=== PATIENT | female | born 1975 | race Caucasian/White ===

== ENCOUNTER 2020-02-09 10:32 | Observation (INO) ==
[2020-02-09] MEDS ORDERED: MoRPHine SULFATE 4 MG/ML 1 ML CARP\\VIAL IV STA ×2 (11:15→12:24)
[2020-02-09] MEDS ORDERED: PROMETHAZINE 12.5 MG/50.5 ML BAG IV STA (11:15)
--- NOTE | 2020-02-09 11:42 | XRay Report ---
XR chest 1V portable CLINICAL HISTORY: fall, pain in chest/fluid retention COMPARISON STUDY: Chest radiograph October 17, 2019. FINDINGS: Lung volumes are normal. Lungs are clear. There is no pneumothorax or pleural effusion. Car diac size is normal. Mediastinal contours are normal. There is no evidence for pulmonary edema. A mon itoring device projects over the left hemithorax. IMPRESSION: No acute cardiopulmonary findings. ACT 112: Negative or not required by law. Electronically signed by: Ramiro Bey M.D. 02/09/2020 11:40 AM
[2020-02-09 11:47] LABS: Basophils # (auto) 0.02 K/uL (0-0.2); Basophils % (auto) 0.3 %; Eosinophils # (auto) 0.21 K/uL (0-0.5); Hematocrit (blood only) 41.2 % (37-47); Hemoglobin 13.6 g/dL (12.0-16.0); Immature Granulocytes # (auto) 0.01 K/uL (0.00-0.02); Immature Granulocytes % (auto) 0.1 %; Lymphocytes # (auto) 2.54 K/uL (1.2-3.4); Lymphocytes % (auto) 35.9 %; Mean Corpuscular Hemoglobin 30.8 pg (25-34); Mean Corpuscular Volume 93.2 fL (80-100); Mean Platelet Volume 9.4 fL (7.4-10.4); Monocytes # (auto) 0.63 K/uL (0.11-0.59); Monocytes % (auto) 8.9 %; Neutrophils # (auto) 3.66 K/uL (1.4-6.5); Neutrophils % (auto) 51.8 %; Platelet Count 300 K/uL (130-400); RDW Coefficient of Variation 13.2 % (11.5-14.5); RDW Standard Deviation 44.9 fL (36.4-46.3); Red Blood Count 4.42 M/uL (4.2-5.4); White Blood Count 7.07 K/uL (4.8-10.8)
--- NOTE | 2020-02-09 11:55 | CT Scan Report ---
CT head/brain wo con CLINICAL HISTORY: 44 years-old Female with Fall, head, face, neck pain. Acute head and neck injury s tatus post fall TECHNIQUE: Multiple axial CT images of the head were obtained without contrast. A dose lowering tech nique was utilized adhering to the principles of ALARA. CT DOSE: 638.56 mGycm COMPARISON: CT cervical spine of same day, head CT 10/17/2019. FINDINGS: No acute intracranial hemorrhage, midline shift, intracranial mass, hydrocephalus, territorial ischem ia or abnormal extra-axial collection. Low-lying cerebellar tonsils. The calvarium is intact. Mild mucosal thickening of the left maxillary sinus. Mastoid air cells are clear. Soft tissues and orbits are unremarkable. IMPRESSION: No acute intracranial abnormality or calvarial fracture. ACT 112: Negative or not required by law. The above report was generated using voice recognition software. It may contain grammatical, syntax o r spelling errors. Electronically signed by: Ward Carrington M.D. 02/09/2020 11:54 AM
--- NOTE | 2020-02-09 12:05 | CT Scan Report ---
CT cervical spine wo con CT DOSE: 1030.64 mGycm CLINICAL HISTORY: 44 years-old Female with Fall, head, face, neck pain. Acute head and neck pain sta tus post fall COMPARISON: Head CT of same day. TECHNIQUE: Multiple axial CT images of the cervical spine were obtained without contrast. A dose low ering technique was utilized adhering to the principles of ALARA. FINDINGS: Straightening of the normal cervical lordosis. Mild disc space narrowing at C4-C5 and C5-C6 with mild spondylitic spurring. Mild multilevel facet arthrosis. Evaluation of the central canal and neurofora bryce is better assessed by MRI. No high-grade central canal or foraminal narrowing identified. Mild groundglass densities of the lung apices. No pneumothorax. Soft tissues are unremarkable. No pre vertebral soft tissue swelling. IMPRESSION: No acute fracture or subluxation. ACT 112: Negative or not required by law. The above report was generated using voice recognition software. It may contain grammatical, syntax o r spelling errors. Electronically signed by: Ward Carrington M.D. 02/09/2020 12:03 PM
[2020-02-09 12:06] LABS: Alanine Aminotransferase 44 U/L (12-78); Aspartate Aminotransferase 33 U/L (15-37); BUN Creatinine Ratio 20.4 (10-20); Blood Urea Nitrogen 14 mg/dl (7-18); Calcium 8.7 mg/dl (8.5-10.1); Carbon Dioxide 25 mmol/L (21-32); Chloride 104 mmol/L (98-107); Creatinine Clr Calc Pharmacy 115.2 ml/min; Est GFR (African American) 122.2; Est GFR (Non-African American) 105.4; Glucose 95 mg/dl (70-99); Potassium 3.5 mmol/L (3.5-5.1); Sodium 137 mmol/L (136-145)
--- NOTE | 2020-02-09 12:07 | CT Scan Report ---
LUMBAR SPINE CT CT DOSE: HISTORY: Fall, low back pain TECHNIQUE: Multiaxial CT images of the lumbar spine were performed and reformatted in the sagittal an d coronal plane without the use of contrast. A dose lowering technique was utilized adhering to the principles of ALARA. COMPARISON: None. FINDINGS: No fractures. No subluxation. Paraspinal soft tissues are unremarkable. Mild disc space ana maría rowing at L3-L4. Mild facet degenerative changes seen within the lower lumbar spine. IMPRESSION: No fractures within the lumbar spine. ACT 112: Negative or not required by law. Electronically signed by: Torin Carson M.D. 02/09/2020 12:05 PM
[2020-02-09 12:11] LABS: Albumin Globulin Ratio 1.1 (0.9-2); Alkaline Phosphatase 70 U/L (45-117); Bilirubin,Total 0.4 mg/dl (0.2-1); Globulin 3.7 gm/dl (2.5-4.0); Total Protein 7.7 gm/dl (6.4-8.2); Troponin I < 0.015 ng/ml (0-0.045)
--- NOTE | 2020-02-09 12:17 | Emergency Department Note ---
History of Present Illness General Chief complaint: Head Injury, Minor Stated complaint: HEAD HIT OFF DOOR,LOST CONCIOUSNESS,DOC REF Time Seen by Provider: 02/09/20 11:01 History of Present Illness Maximum Pain Intensity: 10 This is a 44-year-old female with a past medical history significant for that of Guillain Larson and cardiomyopathy that presents to the emergency department via private vehicle with concerns of a head injury and back pain. She was referred by the PCP office. Patient states that earlier today she was at home getting ready for a PCP office visit regarding constant diarrhea and states that as she was rushing she was running and accidentally ran into the sliding door of her home. She struck her face against this and struck it with such force that she flew backwards. She notes pain now in the face, head, neck and low back. She also notes some discomfort in the right anterior chest. Pain is a 10/10. It is worse with movement and only mildly better with rest. Patient does believe that there was positive loss of consciousness. No bowel or bladder incontinence, no numbness or tingling in the genital region. Home Medications Home Medications Medication Instructions Recorded Confirmed Type clonazepam [Klonopin] 0.5 mg PO BID 02/11/19 02/09/20 History gabapentin 300 mg PO BID 10/17/19 02/09/20 History hydroxyzine HCl 25 mg PO HS 02/09/20 02/09/20 History metoprolol succinate 25 mg PO DAILY 02/09/20 02/09/20 History omeprazole 20 mg PO DAILY 02/09/20 02/09/20 History oxycodone-acetaminophen 1 tab PO BID 02/09/20 02/09/20 History Allergies Allergy/AdvReac Type Severity Reaction Status Date / Time lamotrigine Allergy rash Verified 02/09/20 12:06 meloxicam [From Mobic] AdvReac Chest Pain Verified 02/09/20 12:06 Past Med/Surg History Medical History Cardiomyopathy EF 50%; follows with Triston Chapman; 2nd to prior alcohol use? SUKHJINDER (generalized anxiety disorder) GERD (gastroesophageal reflux disease) Guillain Larson syndrome dx 09/2019 - [facility] History of endometriosis History of pancreatitis PTSD (post-traumatic stress disorder) Von Willebrand disease Surgical History H/O prior ablation treatment lumbar spinal nerves - [facility] - 12/2019 History of hysterectomy S/P cholecystectomy Family History Grandmother (Maternal) , age 56 Colorectal cancer Father Alzheimer disease Social History Preferred Language: Bulgarian Communication Ability: Effective Plumber Required: No Beliefs That Will Affect Care: None marital status: Current Living Situation: Spouse current occupational status: previously employed Other Information That Helps Us Care for You: No other: 2 children, college-age Feels Safe at Home: Yes Safety Concerns: Feels Safe At This Time Smoking Status: Never smoker Hx Alcohol Use: Yes Alcohol type: beer Alcohol Intake Frequency: Weekly Alcohol Intake Frequency Comment: drank heavily in her 20s Hx Substance Use: No 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 Review of Systems A total of 10 systems reviewed and were otherwise negative Physical Exam Vital Signs Vital Signs - 24 hr 02/09/20 10:48 02/09/20 13:18 02/09/20 13:19 Temperature 36.8 C Temperature Source Oral Pulse Rate 90 Pulse Rate [Right Finger] 80 78 Pulse Rhythm [Right Finger] Pulse Strength [Right Finger] Respiratory Rate 16 14 18 Respiratory Effort / Characteristics Respiratory Depth Blood Pressure 138/88 Blood Pressure [Left Arm] 116/79 116/79 Blood Pressure Mean 104 Blood Pressure Mean [Left Arm] 91 91 Blood Pressure Position [Left Arm] Pulse Oximetry 98 97 96 Oxygen Delivery Method Room Air Room Air Room Air Sepsis Recent Fever Within 48 Hours No Sepsis New/Unexplained Change in Mental Status No Sepsis Action Taken by Nursing No Action Required 02/09/20 15:00 02/09/20 16:10 Temperature Temperature Source Pulse Rate Pulse Rate [Right Finger] 87 83 Pulse Rhythm [Right Finger] Regular Regular Pulse Strength [Right Finger] Normal Normal Respiratory Rate 20 18 Respiratory Effort / Characteristics Non-Labored Spontaneous Non-Labored Spontaneous Respiratory Depth Normal Normal Blood Pressure Blood Pressure [Left Arm] 115/62 Blood Pressure Mean Blood Pressure Mean [Left Arm] 79 Blood Pressure Position [Left Arm] Lying Pulse Oximetry 95 97 Oxygen Delivery Method Room Air Room Air Sepsis Recent Fever Within 48 Hours Sepsis New/Unexplained Change in Mental Status Sepsis Action Taken by Nursing VITAL SIGNS - Vital signs and nursing notes were reviewed. Stable and afebrile. GENERAL -44-year-old female appearing her stated age who is in no acute distress. Communicates well with provider and answers questions appropriately. SKIN - Without rashes. Contusion noted overlying the nose with a small skin defect but no repairable laceration. No other bruising or deformity noted on examination. HEAD - NC/AT. EYES - PERRL with EOMI bilaterally. Sclera anicteric. EARS - No deformities of external structures noted on gross examination bilaterally. NOSE - Midline and without cyanosis. No epistaxis or purulent drainage noted. MOUTH/OROPHARYNX - Without perioral cyanosis. Buccal mucosa pink and moist and without leukoplakia. Tongue midline with equal elevation of palate bilaterally. No tonsillar hypertrophy, erythema, or exudates noted. Good dentition noted. NECK - Neck with FROM. No nuchal rigidity. LUNGS - Chest wall symmetric without accessory muscle use, intercostals retractions, or central cyanosis. Normal vesicular breath sounds CTA B/L. No wheezes, rales, or rhonchi appreciated. CARDIAC - RRR with S1/S2. No murmur, rubs, or gallops appreciated. ABDOMEN - Abdominal contour normal without pulsations or visible masses. BS normoactive all four quadrants. No tenderness, palpable masses, hepatosplenomegaly, or ascites noted. EXTREMITIES - No clubbing or peripheral cyanosis. No pretibial edema present.+5/5 strength noted in UE/LE bilaterally. No deficits in the lower ex tremities. NEUROLOGIC - Cranial nerves II through XII grossly intact. PSYCH - A&Ox3 and cooperates fully with examiner. Pt is very pleasant and interacts well with examiner. Course Administered Medications Discontinued Medications Acetaminophen (Tylenol) 650 mg PO NOW STA Stop: 02/09/20 14:03 Last Admin: 02/09/20 14:40 Dose: 650 mg Documented by: [id number] Promethazine HCl (Phenergan) 12.5 mg in 50.5 mls @ 202 mls/hr IV NOW STA Stop: 02/09/20 11:29 Last Infusion: 02/09/20 12:18 Dose: 0 mls/hr Documented by: [id number] Admin: 02/09/20 11:32 Dose: 202 mls/hr Documented by: [id number] Morphine Sulfate (Morphine Sulfate) 4 mg IV NOW STA Stop: 02/09/20 11:16 Last Admin: 02/09/20 11:35 Dose: 4 mg Documented by: [id number] Morphine Sulfate (Morphine Sulfate) 4 mg IV NOW STA Stop: 02/09/20 12:25 Last Admin: 02/09/20 13:19 Dose: 4 mg Documented by: [id number] Morphine Sulfate (Morphine Sulfate) 2 mg IV NOW STA Stop: 02/09/20 16:23 Last Admin: 02/09/20 16:48 Dose: 2 mg Documented by: [id number] Ondansetron HCl (Zofran) 4 mg IV NOW STA Stop: 02/09/20 12:25 Last Admin: 02/09/20 13:19 Dose: 4 mg Documented by: [id number] Ondansetron HCl (Zofran) 4 mg IV NOW STA Stop: 02/09/20 16:28 Last Admin: 02/09/20 16:49 Dose: 4 mg Documented by: [id number] Medical Decision Making Laboratory Data Result diagrams: 02/09/20 11:22 02/09/20 11:22 Lab Results 02/09/20 02/09/20 02/09/20 Range/Units 11:22 11:22 11:22 WBC 7.07 (4.8-10.8) K/uL RBC 4.42 (4.2-5.4) M/uL Hgb 13.6 (12.0-16.0) g/dL Hct 41.2 (37-47) % MCV 93.2 (80-100) fL MCH 30.8 (25-34) pg MCHC 33.0 (32-36) g/dL RDW Std Deviation 44.9 (36.4-46.3) fL RDW Coeff of Claudio 13.2 (11.5-14.5) % Plt Count 300 (130-400) K/uL MPV 9.4 (7.4-10.4) fL Immature Gran % (Auto) 0.1 % Neut % (Auto) 51.8 % Lymph % (Auto) 35.9 % Meigs % (Auto) 8.9 % Eos % (Auto) 3.0 % Baso % (Auto) 0.3 % Immature Gran # (Auto) 0.01 (0.00-0.02) K/uL Neut # (Auto) 3.66 (1.4-6.5) K/uL Lymph # (Auto) 2.54 (1.2-3.4) K/uL Meigs # (Auto) 0.63 H (0.11-0.59) K/uL Eos # (Auto) 0.21 (0-0.5) K/uL Baso # (Auto) 0.02 (0-0.2) K/uL Sodium 137 (136-145) mmol/L Potassium 3.5 (3.5-5.1) mmol/L Chloride 104 (98-107) mmol/L Carbon Dioxide 25 (21-32) mmol/L Anion Gap 8.0 (3-11) BUN 14 (7-18) mg/dl Creatinine 0.67 (0.6-1.2) mg/dl Est Cr Clr Drug Dosing 115.2 ml/min Est GFR ( Amer) 122.2 Est GFR (Non-Af Amer) 105.4 BUN/Creatinine Ratio 20.4 H (10-20) Glucose 95 (70-99) mg/dl Calcium 8.7 (8.5-10.1) mg/dl Total Bilirubin 0.4 (0.2-1) mg/dl AST 33 (15-37) U/L ALT 44 (12-78) U/L Alkaline Phosphatase 70 (45-117) U/L Troponin I < 0.015 (0-0.045) ng/ml C-Reactive Protein 0.72 H (0-0.29) mg/dl Total Protein 7.7 (6.4-8.2) gm/dl Albumin 4.0 (3.4-5.0) gm/dl Globulin 3.7 (2.5-4.0) gm/dl Albumin/Globulin Ratio 1.1 (0.9-2) Urine Color Urine Appearance (Clear) Urine pH (4.5-7.5) Ur Specific Hamilton (1.000-1.030) Urine Protein (Negative) Urine Glucose (UA) (Negative) Urine Ketones (Negative) Urine Blood (Negative) Urine Nitrite (Negative) Urine Bilirubin (Negative) Urine Urobilinogen (Negative) Ur Leukocyte Esterase (Negative) Urine Test (Negative) 02/09/20 02/09/20 Range/Units 12:55 12:55 WBC (4.8-10.8) K/uL RBC (4.2-5.4) M/uL Hgb (12.0-16.0) g/dL Hct (37-47) % MCV (80-100) fL MCH (25-34) pg MCHC (32-36) g/dL RDW Std Deviation (36.4-46.3) fL RDW Coeff of Claudio (11.5-14.5) % Plt Count (130-400) K/uL MPV (7.4-10.4) fL Immature Gran % (Auto) % Neut % (Auto) % Lymph % (Auto) % Meigs % (Auto) % Eos % (Auto) % Baso % (Auto) % Immature Gran # (Auto) (0.00-0.02) K/uL Neut # (Auto) (1.4-6.5) K/uL Lymph # (Auto) (1.2-3.4) K/uL Meigs # (Auto) (0.11-0.59) K/uL Eos # (Auto) (0-0.5) K/uL Baso # (Auto) (0-0.2) K/uL Sodium (136-145) mmol/L Potassium (3.5-5.1) mmol/L Chloride (98-107) mmol/L Carbon Dioxide (21-32) mmol/L Anion Gap (3-11) BUN (7-18) mg/dl Creatinine (0.6-1.2) mg/dl Est Cr Clr Drug Dosing ml/min Est GFR ( Amer) Est GFR (Non-Af Amer) BUN/Creatinine Ratio (10-20) Glucose (70-99) mg/dl Calcium (8.5-10.1) mg/dl Total Bilirubin (0.2-1) mg/dl AST (15-37) U/L ALT (12-78) U/L Alkaline Phosphatase (45-117) U/L Troponin I (0-0.045) ng/ml C-Reactive Protein (0-0.29) mg/dl Total Protein (6.4-8.2) gm/dl Albumin (3.4-5.0) gm/dl Globulin (2.5-4.0) gm/dl Albumin/Globulin Ratio (0.9-2) Urine Color Yellow Urine Appearance Clear (Clear) Urine pH 5.0 (4.5-7.5) Ur Specific Hamilton 1.012 (1.000-1.030) Urine Protein Negative (Negative) Urine Glucose (UA) Negative (Negative) Urine Ketones Negative (Negative) Urine Blood Negative (Negative) Urine Nitrite Negative (Negative) Urine Bilirubin Negative (Negative) Urine Urobilinogen Negative (Negative) Ur Leukocyte Esterase Negative (Negative) Urine Test Negative (Negative) Imaging Data Radiologist's Impression: CT head/brain wo con CLINICAL HISTORY: 44 years-old Female with Fall, head, face, neck pain. Acute head and neck injury status post fall TECHNIQUE: Multiple axial CT images of the head were obtained without contrast. A dose lowering technique was utilized adhering to the principles of ALARA. CT DOSE: 638.56 mGycm COMPARISON: CT cervical spine of same day, head CT 10/17/2019. FINDINGS: No acute intracranial hemorrhage, midline shift, intracranial mass, hydrocephalus, territorial ischemia or abnormal extra-axial collection. Low- lying cerebellar tonsils. The calvarium is intact. Mild mucosal thickening of the left maxillary sinus. Mastoid air cells are clear. Soft tissues and orbits are unremarkable. IMPRESSION: No acute intracranial abnormality or calvarial fracture. ACT 112: Negative or not required by law. The above report was generated using voice recognition software. It may contain grammatical, syntax or spelling errors. Electronically signed by: Ward Carrington M.D. 02/09/2020 11:[address] DOSE: HISTORY: Fall, head, face, neck pain TECHNIQUE: Multiaxial CT images of the maxillofacial region were performed and reformatted in the coronal plane without the use of contrast. A dose lowering technique was utilized adhering to the principles of ALARA. COMPARISON: None. FINDINGS: The visualized cervical spine, skull base, pterygoid plates, nasal bones, lamina papyracea, orbital floors, mandible, and zygomatic arches are intact. No fractures. The orbits are unremarkable. Moderate mucosal thickening within the maxillary sinuses. IMPRESSION: No fractures within the maxillofacial region. ACT 112: Negative or not required by law. Electronically signed by: Torin Carson M.D. 02/09/2020 12:[address] cervical spine wo con CT DOSE: 1030.64 mGycm CLINICAL HISTORY: 44 years-old Female with Fall, head, face, neck pain. Acute head and neck pain status post fall COMPARISON: Head CT of same day. TECHNIQUE: Multiple axial CT images of the cervical spine were obtained without contrast. A dose lowering technique was utilized adhering to the principles of ALARA. FINDINGS: Straightening of the normal cervical lordosis. Mild disc space narrowing at C4- C5 and C5-C6 with mild spondylitic spurring. Mild multilevel facet arthrosis. Evaluation of the central canal and neuroforamina is better assessed by MRI. No high-grade central canal or foraminal narrowing identified. Mild groundglass densities of the lung apices. No pneumothorax. Soft tissues are unremarkable. No prevertebral soft tissue swelling. IMPRESSION: No acute fracture or subluxation. ACT 112: Negative or not required by law. The above report was generated using voice recognition software. It may contain grammatical, syntax or spelling errors. Electronically signed by: Ward Carrington M.D. 02/09/2020 12:[address] DOSE: HISTORY: Fall, low back pain TECHNIQUE: Multiaxial CT images of the lumbar spine were performed and reformatted in the sagittal and coronal plane without the use of contrast. A d ose lowering technique was utilized adhering to the principles of ALARA. COMPARISON: None. FINDINGS: No fractures. No subluxation. Paraspinal soft tissues are unremarkable. Mild disc space narrowing at L3-L4. Mild facet degenerative changes seen within the lower lumbar spine. IMPRESSION: No fractures within the lumbar spine. ACT 112: Negative or not required by law. Electronically signed by: Torin Carson M.D. 02/09/2020 12:[address] pelvis wo con HISTORY: 44 years-old Female Fall, low back pain acute pelvic pain status post fall COMPARISON: CT lumbar spine of same day TECHNIQUE: Multiple axial CT images of the pelvis were obtained without the use of IV contrast. A dose lowering technique was used consistent with the principals of ALARA. FINDINGS: The imaged intrapelvic structures demonstrate no acute abnormality. Mild urinary bladder distention. Hysterectomy. No adnexal mass lesions. No bowel obstruction or bowel wall thickening. Noninflamed appendix. No ascites or mesenteric stranding. No adenopathy. Iliac vessels appear unremarkable. Soft tissues are within normal limits. Moderate facet arthrosis of the lower lumbar spine. Partial bony fusion of the left SI joint. There is at least mild osteoarthritis of the bilateral femoral acetabular joints. No acute fracture, dislocation or avascular necrosis. IMPRESSION: No acute fracture or dislocation. ACT 112: Negative or not required by law. The above report was generated using voice recognition software. It may contain grammatical, syntax or spelling errors. Electronically signed by: Ward Carrington M.D. 02/09/2020 12:20 PM XR chest 1V portable CLINICAL HISTORY: fall, pain in chest/fluid retention COMPARISON STUDY: Chest radiograph October 17, 2019. FINDINGS: Lung volumes are normal. Lungs are clear. There is no pneumothorax or pleural effusion. Cardiac size is normal. Mediastinal contours are normal. There is no evidence for pulmonary edema. A monitoring device projects over the left hemithorax. IMPRESSION: No acute cardiopulmonary findings. ACT 112: Negative or not required by law. Electronically signed by: Ramiro Bey M.D. 02/09/2020 11:40 AM ECG Data Additional Comments: EKG was reviewed by myself and found to be Normal Sinus Rhythm at a rate of 78 beats per minute and per my interpretation reveals T wave inversion in lead III, V1, V2, V3, V4 and V5. Patient then noted return of ches t pain/worsening pain and a repeat EKG was performed and this was unchanged from previous noting a rate of 78 bpm. First EKG QTC 432 with the second being 460. And when compared to previous EKG of October 17, 2019 no significant change was found. MDM Narrative Patient was seen and evaluated as above in room B6. Review was performed of nursing notes and vital signs. I did review pertinent previous visits and patient history. After obtaining a thorough history and physical examination the above work up was performed. She presents to us today status post excellently running into a sliding door at her home now with head, face, neck and low back pain. She also notes pain in the chest. She then presented to her PCP today for evaluation of diarrhea and notes that she sustained the injury just prior to arrival to that appointment as she was referred here for further evaluation and management noting the positive loss of consciousness and other injuries. On arrival the patient does have several areas of pain/chief complaint. She notes pain in the head, face, neck, chest, low back. She also notes generalized edema and abdominal swelling as well as diarrhea that is been chronic but resolved today. I will note her vital signs are stable. She is afebrile. Her examination does not reveal any neurologic deficit. There is no leukocytosis or anemia. No emergent metabolic disturbance. Troponin negative. Urinalysis does not suggest infection. I discussed options of care with the patient and given the patient's complaint of severe discomfort in the head, face, neck and low back with associated mechanism of injury it was felt that CTs were warranted. Patient is also complaining of a dripping water sensation in the low back. The patient does not have any symptoms or sign on examination to suggest that of cauda equina syndrome. A CT scan of the head, face, C-spine, L-spine and pelvis were performed. Results as above. I reviewed these with the patient. A chest x-ray was also obtained as the patient noted chest discomfort. The CT scan of the head is negative for any acute process. The CT scan of the face does not r eveal any fracture. The CT scan of the cervical spine does not reveal any fracture. L-spine reveals no fracture. Pelvis reveals no fracture and the chest x-ray is negative. I informed the patient upon the findings and upon subsequent reevaluation several times she noted persistence of pain therefore was medicated appropriately. She was also given several antiemetics. Patient expressed concern over going home noting that she feels she may fall if she goes home. With the patient's concern she asked about potentially staying in the hospital and I discussed this with the hospitalist. She will be evaluated by that team and likely admitted for further evaluation and management. Please ref er to further documentation regarding her stay. While in the department, I personally reevaluated the patient several times and each time the patient was found to be resting comfortably. Case was discussed with the attending physician. EKG was reviewed by myself and found to be Normal Sinus Rhythm at a rate of 78 beats per minute and per my interpretation reveals T wave inversion in lead III, V1, V2, V3, V4 and V5. Patient then noted return of chest pain/worsening pain and a repeat EKG was performed and this was unchanged from previous noting a rate of 78 bpm. First EKG QTC 432 with the second being 460. And when compared to previous EKG of October 17, 2019 no significant change was found. I attest that I have personally reviewed the patient medication list. I attest that I have reviewed the patient's blood pressure and it was found to be within normal limits. GCS: 15 In the evaluation and treatment of this patient, the following differential diagnoses were considered: Concussion, Contrecoup Injury, Brain Tumor, Depression, Encephalitis, Hypothyroidism, Meningitis, CVA, TIA, Migraine, Cluster Headache, Intracranial Abnormality, Intracranial Hemorrhage, Subdural Hematoma, Subarachnoid Hemorrhage, Hydrocephalus, Fracture, dislocation, subluxation, cauda equina syndrome, AAA, diverticulitis, appendicitis, torsion, osteomyelitis, piriformis syndrome, strain, sprain, among others. Impression & Plan Fall, Concussion, Acute neck pain, Back pain, Chest pain, Dizziness Discharge Plan Visit Data Chief Complaint: Head Injury, Minor Stated Complaint: HEAD HIT OFF DOOR,LOST CONCIOUSNESS,DOC REF ED Provider: Kumar Pruitt ED Midlevel Provider: Pedro Johnson Discharge Problem: Fall, Concussion, Acute neck pain, Back pain, Chest pain, Dizziness Patient Disposition: Admitted As Inpatient Condition: Good Forms Stand Alone Forms: [facility], Virtual Emergency Department, Important Visit Information Prescriptions Prescriptions: No Action gabapentin 300 mg capsule 300 mg PO BID RF: 0 clonazepam [Klonopin] 0.5 mg Tablet 0.5 mg PO BID RF: 0 oxycodone-acetaminophen 5-325 mg tablet 1 tab PO BID RF: 0 omeprazole 20 mg capsule,delayed release(DR/EC) 20 mg PO DAILY RF: 0 hydroxyzine HCl 25 mg tablet 25 mg PO HS RF: 0 metoprolol succinate 25 mg tablet extended release 24 hr 25 mg PO DAILY RF: 0 Referrals Referrals: Sukumar Pro MD [Primary Care Provider] - Discharge Problem: Concussion Qualifiers: Encounter type: initial encounter Loss of consciousness presence/duration: with LOC of 30 min or less Qualified Code(s): S06.0X1A - Concussion with loss of consciousness of 30 minutes or less, initial encounter
--- NOTE | 2020-02-09 12:21 | CT Scan Report ---
CT pelvis wo con HISTORY: 44 years-old Female Fall, low back pain acute pelvic pain status post fall COMPARISON: CT lumbar spine of same day TECHNIQUE: Multiple axial CT images of the pelvis were obtained without the use of IV contrast. A dos e lowering technique was used consistent with the principals of ELVIS. FINDINGS: The imaged intrapelvic structures demonstrate no acute abnormality. Mild urinary bladder distention. Hysterectomy. No adnexal mass lesions. No bowel obstruction or bowel wall thickening. Noninflamed carrie endix. No ascites or mesenteric stranding. No adenopathy. Iliac vessels appear unremarkable. Soft tis sues are within normal limits. Moderate facet arthrosis of the lower lumbar spine. Partial bony fusio n of the left SI joint. There is at least mild osteoarthritis of the bilateral femoral acetabular paulo nts. No acute fracture, dislocation or avascular necrosis. IMPRESSION: No acute fracture or dislocation. ACT 112: Negative or not required by law. The above report was generated using voice recognition software. It may contain grammatical, syntax o r spelling errors. Electronically signed by: Ward Carrington M.D. 02/09/2020 12:20 PM
[2020-02-09] MEDS ORDERED: ONDANSETRON INJ 2 MG/ML 2 ML VIAL IV STA ×2 (12:24→16:27)
--- NOTE | 2020-02-09 12:25 | CT Scan Report ---
MAXILLOFACIAL CT CT DOSE: HISTORY: Fall, head, face, neck pain TECHNIQUE: Multiaxial CT images of the maxillofacial region were performed and reformatted in the cor onal plane without the use of contrast. A dose lowering technique was utilized adhering to the princ iples of ELVIS. COMPARISON: None. FINDINGS: The visualized cervical spine, skull base, pterygoid plates, nasal bones, lamina papyracea, orbital floors, mandible, and zygomatic arches are intact. No fractures. The orbits are unremarkable . Moderate mucosal thickening within the maxillary sinuses. IMPRESSION: No fractures within the maxillofacial region. ACT 112: Negative or not required by law. Electronically signed by: Torin Carson M.D. 02/09/2020 12:24 PM
[2020-02-09 13:08] LABS: Appearance Urine Clear (Clear); Bilirubin Urine Negative (Negative); Blood Urine Negative (Negative); Color Urine Yellow; Glucose Urine UA Negative (Negative); Ketones Urine Negative (Negative); Leukocyte Esterase Urine Negative (Negative); Nitrite Urine Negative (Negative); Protein Urine Negative (Negative); Specific Gravity Urine 1.012 (1.000-1.030); Urobilinogen Urine Negative (Negative)
[2020-02-09 13:25] LABS: Pregnancy Test, Urine Negative (Negative)
[2020-02-09] MEDS ORDERED: ACETAMINOPHEN 325 MG TAB PO STA (14:02)
[2020-02-09] MEDS ORDERED: MoRPHine SULFATE 2 MG/ML CARP IV STA ×2 (16:22→20:53)
--- NOTE | 2020-02-09 16:27 | History & Physical Report ---
Date of Service February 09, 2020 Assessment & Plan (1) Head injury: Patient ran into a glass door at her home due to fecal urgency. Struck the front of her face, was thrown backwards, and then fell to the ground striking her head. Had brief loss of consciousness. Fortunately her head CT and cervical spine CT were both negative. She does have history of von Willebrand's disease and typically gets DDAVP prior to procedures but there is no evidence of any bleeding on any scan. Treat headache, back pain, etc. Uses percocet at home; will allow q6h prn dosing. (2) Concussion: with LOC. CT head negative. Treat concussive symptoms. Dim the lights; no loud TV, radio, phone usage. Limit reading. Rest. (3) Diarrhea: Present 3-4 weeks. Could be reason for her fevers. Has seen [facility] in [place]. They sent stool studies - most are pending. By report c. diff was negative however. Etiology uncertain. [facility] sent TTG as screen for celiac. Still pending. CT abd/pelvis done at [facility] in the last 1-2 weeks was normal by report (I spoke with Dr Johnson from [facility] who saw her in clinic today. He had a copy of the CT report. It was unremarkable including the pancreas). Will need to call [facility] in am for update on stool studies. Will begin colestipol 1gm BID in light of cholecystectomy state and ongoing diarrhea. Likely to need outpatient colonoscopy. COVID-19 testing was negative 3 weeks ago and she was having diarrhea at that time. (4) Fever: COVID-19 testing x 3 dating back to early December negative. last was ~3 weeks ago at [facility] (at time of lumbar spinal ablation procedure). Fever 2nd to diarrhea process? Check blood cultures. Check sed rate. Check crp. CT cervical spine with incidental ground glass opacities - consider dedicated CT chest. Again will need to call Tonya Delvalle in am tomorrow for update on stool studies. U/a without signs of UTI. (5) Cardiomyopathy: Follows with Dr Raymundo in [place]. EF 50%. last echo 3-4 weeks ago. Appears compensated on exam. Cont BB. etiology - due to prior heavy etoh use? 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 doubt diarrhea is from pancreatic insufficiency but cannot rule out fully. last episode of pancreatitis was years ago. drinks in moderation 1-2 times each week. 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 Patient states that about 5am this morning she took her dogs outside. She exited her home via a sunroom. The sunroom and house have sliding glass doors. She suddenly had the urge to defecate (she had been having copious diarrhea for several weeks), and sensing the need to sanchez back into her home to get to the bathroom, she slammed her head into the glass doors. Her forehead and nose took the brunt of the impact, which then threw her back several feet from the door. She hit her head on the tile of the sunroom and got knocked out. She was unconscious only briefly. When she awoke she managed to get to her feet and her family came to her aid. She took previosly prescribed oxycodone for aches/pains (headache, back pain, etc) without relief. She had a previously scheduled office visit with [facility] in [place] and waited during the morning for that appointm ent. She saw Dr Johnson and he advised being evaluated in the ER. Patient reports numerous other issues that have been present for several weeks. 1. fevers - present for 3-4 weeks. Occurring at night-time primarily, at least every other day. Most temps about 100 degrees. Had temp to 102 in December -- this caused her lumbar spinal nerve ablation procedure to be canceled. 2. diarrhea - also present for 3-4 weeks. Watery stool, with mucous (calls it an "olive oil" appearance). No blood. Nocturnal diarrhea does occur. 10-15 episodes/day. Associated abdominal discomfort, nausea. Had emesis x 1 this past weekend. Saw [facility]. She was sent for CT abd/pelvis a few weeks ago at [facility] [place] - told results were normal. C diff testing was negative. Sounds like they were collecting stool for quantitative fecal fat. She just had bentyl prescribed today by [facility]. 3. fluid retention - hands, abdomen, legs - with associated weight gain. Denies dyspnea, however. 4. 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 5. reports COVID-19 testing x 3 over the last 6 weeks -- all negative. Allergies Allergy/AdvReac Type Severity Reaction Status Date / Time lamotrigine Allergy rash Verified 02/09/20 12:06 meloxicam [From Mobic] AdvReac Chest Pain Verified 02/09/20 12:06 Home Medications Home Medications Medication Instructions Recorded Confirmed Type clonazepam [Klonopin] 0.5 mg PO BID 02/11/19 02/09/20 History gabapentin 300 mg PO BID 10/17/19 02/09/20 History hydroxyzine HCl 25 mg PO HS 02/09/20 02/09/20 History metoprolol succinate 25 mg PO DAILY 02/09/20 02/09/20 History omeprazole 20 mg PO DAILY 02/09/20 02/09/20 History oxycodone-acetaminophen 1 tab PO BID 02/09/20 02/09/20 History Past Med/Surg History Medical History Cardiomyopathy EF 50%; follows with [facility]; 2nd to prior alcohol use? 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 Beliefs That Will Affect Care: None marital status: Current Living Situation: Spouse current occupational status: previously employed Other Information That Helps Us Care for You: No other: 2 children, college-age Feels Safe at Home: Yes Safety Concerns: Feels Safe At This Time Smoking Status: Never smoker Hx Alcohol Use: Yes Alcohol type: beer Alcohol Intake Frequency: Weekly Alcohol Intake Frequency Comment: drank heavily in her 20s Hx Substance Use: No 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 Review of Systems Constitutional: + fever (x 3-4 weeks; about 100 degrees ), + fatigue, + anorexia and + weight gain (due to "fluid"); no chills Eyes: no worsening vision Ear, Nose, Mouth, Throat: no nasal congestion, no sore throat and no dysphagia was tested for COVID-19 3 times in the last 1-2 months Respiratory: no cough and no dyspnea Cardiovascular: + chest pain (s/p fall today - right side of chest wall ) and + edema; no dyspnea at rest Gastrointestinal: + abdominal pain, + nausea, + vomiting (last weekend x 1 ) and + diarrhea/loose stools (10+ times each day including nocturnal symptoms; watery, mucous?); no blood in stools Genitourinary: no dysuria Musculoskeletal: + back pain; no joint pain Integumentary: bruise, right leg Neurologic: + generalized weakness and + loss of sensation (left leg - due to guillain'barre) Psychiatric: + anxiety Endocrine: no diabetes Hematologic / Lymphatic: + easy bruising Physical Exam Constitutional: + acute distress (c/o back pain, right rib pain, leg pains); no altered mental status (but shifts from topic to topic during the history) Eyes: + anicteric sclerae, PERRL and + photophobia (mild ) ENMT: external ear and nose normal, oropharynx normal Ears: no TM abnormality Neck: trachea midline, no thyromegaly Respiratory: normal respiratory effort, lungs clear to auscultation no respiratory distress Cardiovascular: Rate/Rhythm: regular rate and regular rhythm Heart Sounds: normal S1 and normal S2; no murmur Vessels: posterior tibial pulses present and dorsalis pedis pulses present; no JVD Extremities: no edema Gastrointestinal (Abdomen): Inspection/Auscultation: + abdomen distended (mild) and normal bowel sounds Percussion/Palpation: + abdomen tender (along right costal margin; mild tenderness RUQ); no guarding and no hepatosplenomegaly Musculoskeletal: Spine: + lumbar spinal tenderness (to palpation) and + paraspinal tenderness hips without pain with passive ROM; bruise/ecchymoses over right medial thigh; no signs of trauma to arms Skin: Trauma: + evidence of skin trauma (abrasion - nasal bridge) Neurologic: deep tendon reflexes 2+ bilaterally (upper/lower extremities ), moves all extremities and + confused (mild) Speech / Cognition: normal speech Motor/Sensory: no tremor Psychiatric: Orientation: alert, oriented to person, oriented to place and or iented to time (scant confusion at times ) Lymphatic: no cervical lymphadenopathy Results & Data Results & Data ([facility]) Vital Signs (Past 12 Hours) Vital Signs Temp Pulse Pulse Resp BP BP Pulse Ox 02/09/20 13:19 78 18 116/79 96 02/09/20 13:18 80 14 116/79 97 02/09/20 10:48 36.8 C 90 16 138/88 98 Laboratory Results Laboratory Results - last 24 hr 02/09/20 02/09/20 02/09/20 11:22 11:22 11:22 WBC 7.07 RBC 4.42 Hgb 13.6 Hct 41.2 MCV 93.2 MCH 30.8 MCHC 33.0 RDW Std Deviation 44.9 RDW Coeff of Claudio 13.2 Plt Count 300 MPV 9.4 Immature Gran % (Auto) 0.1 Neut % (Auto) 51.8 Lymph % (Auto) 35.9 [place] % (Auto) 8.9 Eos % (Auto) 3.0 Baso % (Auto) 0.3 Immature Gran # (Auto) 0.01 Neut # (Auto) 3.66 Lymph # (Auto) 2.54 [place] # (Auto) 0.63 H Eos # (Auto) 0.21 Baso # (Auto) 0.02 ESR Sodium 137 Potassium 3.5 Chloride 104 Carbon Dioxide 25 Anion Gap 8.0 BUN 14 Creatinine 0.67 Est Cr Clr Drug Dosing 115.2 Est GFR ( Amer) 122.2 Est GFR (Non-Af Amer) 105.4 BUN/Creatinine Ratio 20.4 H Glucose 95 Calcium 8.7 Total Bilirubin 0.4 AST 33 ALT 44 Alkaline Phosphatase 70 Troponin I < 0.015 C-Reactive Protein 0.72 H Total Protein 7.7 Albumin 4.0 Globulin 3.7 Albumin/Globulin Ratio 1.1 Urine Color Urine Appearance Urine pH Ur Specific [place] Urine Protein Urine Glucose (UA) Urine Ketones Urine Blood Urine Nitrite Urine Bilirubin Urine Urobilinogen Ur Leukocyte Esterase Urine Test 02/09/20 02/09/20 02/09/20 11:22 12:55 12:55 WBC RBC Hgb Hct MCV MCH MCHC RDW Std Deviation RDW Coeff of Claudio Plt Count MPV Immature Gran % (Auto) Neut % (Auto) Lymph % (Auto) [place] % (Auto) Eos % (Auto) Baso % (Auto) Immature Gran # (Auto) Neut # (Auto) Lymph # (Auto) [place] # (Auto) Eos # (Auto) Baso # (Auto) ESR Pending Sodium Potassium Chloride Carbon Dioxide Anion Gap BUN Creatinine Est Cr Clr Drug Dosing Est GFR ( Amer) Est GFR (Non-Af Amer) BUN/Creatinine Ratio Glucose Calcium Total Bilirubin AST ALT Alkaline Phosphatase Troponin I C-Reactive Protein Total Protein Albumin Globulin Albumin/Globulin Ratio Urine Color Yellow Urine Appearance Clear Urine pH 5.0 Ur Specific [place] 1.012 Urine Protein Negative Urine Glucose (UA) Negative Urine Ketones Negative Urine Blood Negative Urine Nitrite Negative Urine Bilirubin Negative Urine Urobilinogen Negative Ur Leukocyte Esterase Negative Urine Test Negative Diagnostic Findings CT head, CT face, CT cervical spine, CT pelvis, CT lumbar spine - no acute injuries, no fractures. Cervical spine CT incidentally noted groundglass opacities upper lobes. Code Status & VTE Plan Code Status full code PG Care Time/CCT Total # of Minutes Spent Total Time Spent with Patient: Total time spent is greater than 50% in coordination of care (as documented) at patient's floor/unit and/or counseling patient: Coding Level of Care Code 23533 OBS Care - Level 3 Diagnoses Head injury S09.90XA Encounter type: initial encounter Concussion S06.0X1A Encounter type: initial encounter Loss of consciousness presence/duration: with LOC of 30 min or less Diarrhea R19.7 Diarrhea type: unspecified type Fever R50.9 Fever type: unspecified Cardiomyopathy I42.9 Cardiomyopathy type: unspecified Guillain Larson syndrome G61.0 SUKHJINDER (generalized anxiety disorder) F41.1 Von Willebrand disease D68.0 GERD (gastroesophageal reflux disease) K21.9 Esophagitis presence: esophagitis presence not specified History of pancreatitis Z87.19 DVT prophylaxis Z29.9 (1) Fever Fever type: unspecified Qualified Code(s): R50.9 - Fever, unspecified (2) Concussion Encounter type: initial encounter Loss of consciousness presence/duration: with LOC of 30 min or less Qualified Code(s): S06.0X1A - Concussion with loss of consciousness of 30 minutes or less, initial encounter (3) Diarrhea Diarrhea type: unspecified type Qualified Code(s): R19.7 - Diarrhea, unspecified (4) Head injury Encounter type: initial encounter Qualified Code(s): S09.90XA - Unspecified injury of head, initial encounter (5) GERD (gastroesophageal reflux disease) Esophagitis presence: esophagitis presence not specified Qualified Code(s): K21.9 - Gastro-esophageal reflux disease without esophagitis (6) Cardiomyopathy Cardiomyopathy type: unspecified Qualified Code(s): I42.9 - Cardiomyopathy, unspecified
[2020-02-09] MEDS ORDERED: ACETAMINOPHEN 325 MG TAB PO PRN (19:38)
[2020-02-09] MEDS: OXYCODONE/ACETAMINOPHEN 5mg/325mg TAB PO PRN (19:52)
[2020-02-09] MEDS: GABAPENTIN 300 MG CAP PO SCH (20:36)
[2020-02-09] MEDS: clonazePAM 0.5 MG TAB PO SCH (20:36)
[2020-02-09] MEDS: COLESTIPOL HCL 1 GM TAB PO SCH (20:37)
[2020-02-09] MEDS: ONDANSETRON INJ 2 MG/ML 2 ML VIAL IV PRN (22:06)
[2020-02-10] MEDS: OXYCODONE/ACETAMINOPHEN 5mg/325mg TAB PO PRN ×2 (02:56→10:04)
[2020-02-10] MEDS: ONDANSETRON INJ 2 MG/ML 2 ML VIAL IV PRN ×2 (05:41→11:21)
--- NOTE | 2020-02-10 06:00 | Electrocardiogram Report ---
Test Reason : Blood Pressure : / mmHG Vent. Rate : 078 BPM Atrial Rate : 078 BPM P-R Int : 154 ms QRS Dur : 084 ms QT Int : 404 ms P-R-T Axes : 047 -21 000 degrees QTc Int : 460 ms Normal sinus rhythm Minimal voltage criteria for LVH, may be normal variant T wave abnormality, consider anterior ischemia Abnormal ECG When compared with ECG of 17-OCT-2019 10:02, T wave inversion now evident in Anterior leads Confirmed by Sotero Vicente ([id number]) on 02/10/2020 5:59:57 AM Referred By: Confirmed By:Sotero Vicente
--- NOTE | 2020-02-10 06:02 | Electrocardiogram Report ---
Test Reason : Blood Pressure : / mmHG Vent. Rate : 076 BPM Atrial Rate : 076 BPM P-R Int : 160 ms QRS Dur : 084 ms QT Int : 384 ms P-R-T Axes : 048 -18 -07 degrees QTc Int : 432 ms Normal sinus rhythm Moderate voltage criteria for LVH, may be normal variant T wave abnormality, consider anterior ischemia Abnormal ECG When compared with ECG of 09-FEB-2020 11:22, No significant change was found Confirmed by Sotero Vicente ([id number]) on 02/10/2020 6:02:11 AM Referred By: REFERRED SELF Confirmed By:Sotero Vicente
[2020-02-10 08:01] VITALS: PULSE 76
[2020-02-10] MEDS: GABAPENTIN 300 MG CAP PO SCH (08:01)
[2020-02-10] MEDS: COLESTIPOL HCL 1 GM TAB PO SCH (08:02)
[2020-02-10] MEDS: clonazePAM 0.5 MG TAB PO SCH (08:05)
[2020-02-10] MEDS ORDERED: METOPROLOL SUCC 25MG EXT REL TAB PO SCH (09:00)
[2020-02-10] MEDS ORDERED: PANTOprazole 40 MG TAB PO SCH (09:00)
[2020-02-10] MEDS ORDERED: OXYCODONE HCL IR 5 MG TAB (IMMEDIATE RELEASE) PO STA (10:56)
[2020-02-10 11:20] VITALS: TEMP 97.9; O2SAT 91
--- NOTE | 2020-02-10 12:17 | CT Scan Report ---
CT head/brain wo con CLINICAL HISTORY: 44 years-old Female with s/p head injury/concussion; worsening headache. Acute hea d injury with headache TECHNIQUE: Multiple axial CT images of the head were obtained without contrast. A dose lowering tech nique was utilized adhering to the principles of ALARA. CT DOSE: 669.45 mGycm COMPARISON: Head CT 02/09/2020 FINDINGS: No acute intracranial hemorrhage, midline shift, intracranial mass, hydrocephalus, territorial ischem ia or abnormal extra-axial collection. The calvarium is intact. Mild mucosal thickening of the left maxillary sinus. Orbits are unremarkabl e. IMPRESSION: No acute intracranial abnormality or calvarial fracture. ACT 112: Negative or not required by law. The above report was generated using voice recognition software. It may contain grammatical, syntax o r spelling errors. Electronically signed by: Ward Carrington M.D. 02/10/2020 12:16 PM
--- NOTE | 2020-02-10 13:37 | Discharge Summary ---
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 Patient states that about 5am this morning she took her dogs outside. She exited her home via a sunroom. The sunroom and house have sliding glass doors. She suddenly had the urge to defecate (she had been having copious diarrhea for several weeks), and sensing the need to sanchez back into her home to get to the bathroom, she slammed her head into the glass doors. Her forehead and nose took the brunt of the impact, which then threw her back several feet from the door. She hit her head on the tile of the sunroom and got knocked out. She was unconscious only briefly. When she awoke she managed to get to her feet and her family came to her aid. She took previosly prescribed oxycodone for aches/pains (headache, back pain, etc) without relief. She had a previously scheduled office visit with [facility] in [place] and waited during the morning for that appointment. She saw Dr Johnson and he advised being evaluated in the ER. Patient reports numerous other issues that have been present for several weeks. 1. fevers - present for 3-4 weeks. Occurring at night-time primarily, at least every other day. Most temps about 100 degrees. Had temp to 102 in December -- this caused her lumbar spinal nerve ablation procedure to be canceled. 2. diarrhea - also present for 3-4 weeks. Watery stool, with mucous (calls it an "olive oil" appearance). No blood. Nocturnal diarrhea does occur. 10-15 episodes/day. Associated abdominal discomfort, nausea. Had emesis x 1 this past weekend. Saw [facility]. She was sent for CT abd/pelvis a few weeks ago at [facility] - told results were normal. C diff testing was negative. Sounds like they were collecting stool for quantitative fecal fat. She just had bentyl prescribed today by [facility]. 3. fluid retention - hands, abdomen, legs - with associated weight gain. Denies dyspnea, however. 4. 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 5. reports COVID-19 testing x 3 over the last 6 weeks -- all negative. Principal Diagnosis 1. head injury with resulting concussion 2. loss of consciousness due to #1 3. recent fevers - resolved; etiology unknown 4. recent diarrhea - improved; appears noninfectious 5. chronic pain syndrome Discharge Exam Constitutional well developed and well nourished; no acute distress and no altered mental status Eyes PERRL ENMT Nose: + external nose abnormality (Bridge of nose with abrasion) Mouth: no oropharynx abnormality and no oral mucosal abnormality Respiratory normal respiratory effort, lungs clear to auscultation Cardiovascular Rate/Rhythm: regular rate and regular rhythm Heart Sounds: normal S1 and normal S2; no murmur Vessels: posterior tibial pulses present and dorsalis pedis pulses present; no JVD Extremities: no edema Gastrointestinal (Abdomen) normal bowel sounds, soft, nontender, no hepatosplenomegaly Neurologic deep tendon reflexes 2+ bilaterally and moves all extremities; no focal motor deficits Psychiatric Orientation: alert and oriented x 3 Affect: + anxious affect Lymphatic no cervical lymphadenopathy Discharge Data Allergies Allergy/AdvReac Type Severity Reaction Status Date / Time lamotrigine Allergy rash Verified 02/09/20 12:06 meloxicam [From Mobic] AdvReac Chest Pain Verified 02/09/20 12:06 Consultations physical therapy Procedures Performed COVID-19 IgG antibody serological test - negative Ordered Studies 02/09/20 11:15 CT cervical spine wo con Stat - no fractures CT facial bones wo con Stat - no fractures CT head/brain wo con Stat - no fractures or ICH CT lumbar spine wo con Stat - no fractures CT pelvis wo con Stat - no fractures 02/10/20 11:45 CT head/brain wo con Urgent - again no ICH or other abnormalities Hospital Course (1) Head injury: Patient ran into a glass door at her home due to fecal urgency. Struck the front of her face, was thrown backwards, and then fell to the ground striking her head. Had brief loss of consciousness. Fortunately her head CT x 2 (first done on 02/08, 2nd done on 02/09), facial CT, and cervical spine CT were negative for fractures or ICH. See "concussion" below. (2) Concussion: with LOC. CT head negative x 2. She was given concussion counseling regarding need for rest, avoidance of stimulating activities, how to treat symptoms, need for post-concussion testing and treatment, etc. She takes chronic narcotics and was also counseled that use of narcotics for headaches, etc will lead to rebound symptoms. She had pain not only in her head from her injury but also in various other locations. She typically takes 5mg of oxycodone prn at home but required higher dose of 10mg prn for relief of pain during this stay. Thus, at discharge, gave #20 of percocet 10's to use on PRN basis at home. Advised NO DRIVING unless cleared by her PCP. Seen by PT; did poorly with ambulation with unsteadiness and dizziness. We discussed consideration of inpatient rehab but patient declined. She desired to return home with her family. Advised outpatient PT beginning in about 1-2 weeks as tolerated. Prescription for outpatient PT was provided at discharge. (3) Diarrhea: Present 3-4 weeks. 20+ stools/day including nocturnal symptoms. Could be reason for her recent fevers. Had seen [facility] in [place]. We requested the available stool studies from [facility] and the following were negative- * stool O and P * c diff toxin * stool WBC (none seen) * stool culture * giardia Ag [facility] sent TTG as screen for celiac. Still pending. CT abd/pelvis done at [facility] in the last 1-2 weeks was normal with unremarkable appearing bowels and unremarkable pancreas. Initiated colestipol 1gm daily in light of cholecystectomy state and ongoing diarrhea. This improved her diarrhea tremendously; in fact she had no stools during her hospitalization. Discharged her home with colestipol 1gm daily (or BID if needed). Likely to need outpatient colonoscopy as she was informed by [facility] that she had heme+ stools on fecal occult testing. Lastly, COVID-19 testing was negative 3 weeks ago and she was having diarrhea at that time. (4) Fever: COVID-19 testing x 3 dating back to early December negative. last was ~3 weeks ago at [facility] (at time of lumbar spinal ablation procedure). Fever 2nd to diarrhea process? Checked blood cultures and these remained negative. CRP and sed rate were NORMAL. CT cervical spine with incidental ground glass opacities in the apices of lungs but NO pulmonary symptoms and normal O2 sats. Chest x-ray was normal as well. U/a without signs of UTI. Had NO FEVER during her stay. I sent a COVID-19 antibody IgG test and this was NEGATIVE indicating no prior COVID-19 exposure. (5) Cardiomyopathy: Follows with Dr Mayfield in [place]. Echo report obtained from his office (was done recently). EF 50-55%. No regional wall motion abnormalities. Was compensated on exam during the hospitalization. Remains on beta simran. EKG with nonspecific ST changes anterior leads - suspect due to her cardiomyopathy. NO recent ischemic symptoms. etiology of cardiomyopathy - due to prior heavy etoh use? (6) Guillain [place] syndrome: suspected diagnosis at [facility] 09/2019 s/p IVIG residual radiculopathy of legs strength normal on exam DTRs normal on exam (7) SUKHJINDER (generalized anxiety disorder): cont home meds (8) Von Willebrand disease: noted no evidence of any bleeding during this hospitalization (9) GERD (gastroesophageal reflux disease): cont PPI (10) History of pancreatitis: no CT evidence of chronic pancreatitis on CT at [facility] 1-2 weeks ago (pancreas was normal and w/o calcifications). doubt diarrhea is from pancreatic insufficiency but cannot rule out fully. last episode of pancreatitis was years ago. drinks alcohol in moderation 1-2 times each week - nothing excessive. Total Time Total Time Spent Total Time Spent (In Minutes): 45 Total Time Includes: Examination of the Patient, Discharge Planning and Medication Reconciliation Discharge Plan Discharge Items Patient Disposition: Home - Self-Care Reason For Visit: HEAD INJURY,SYNCOPE Discharge Diagnosis: 1. head injury with resulting concussion 2. syncope (passing out) - due to head injury 3. diarrhea - exact cause uncertain; no infections found thus far 4. recent fevers - due to #3? blood cultures sent and are pending 5. cardiomyopathy - ejection fraction 50-55% Activity: As commented below Activity Comment: no strenuous activities; no sports/gym; no excessive TV watch ing/computers Lifting: No more than 5 pounds Bathing: No limitations Sexual Activity: Wait until after follow-up appointment Exercise/Sports: Wait until after follow-up appointment Driving/Machine Use: NO DRIVING until cleared by family doctor Non-emergency contact: Primary Care Provider, [facility] Call non-emergency contact if: you have any medication questions, your symptoms worsen, your pain is not controlled, your pain is worsening, your pain is unusual for you, your pain is concerning for you and you have a fever Follow-up/Referrals: Sukumar Pro MD [Primary Care Provider] - 02/17/20 10:10 am (Please, follow up with Dr. Sukumar Pro on February 16 at 10:10 am. *If you need to change this appointment, call the office at [phone].) Diet: Heart Healthy Add Attending Provider Instructions: You were seen and treated for a head injury resulting in a concussion. You suffered brief loss of consciousness from the concussion. CAT scan x 2 of your head did NOT show fracture or bleeding. CAT scan of your neck and lumbar spine did not show fractures. CAT scan of your pelvis did not show broken bones or injury to the pelvic organs. Chest x-ray did not show pneumonia. Blood work for your heart was normal (no heart attack). Heart monitoring while here was normal. We obtained your recent stool studies from [facility]. The following were negative -- stool for parasites; stool bacterial culture (no salmonella, e coli, etc); no giardia; no c. diff. We also obtained your echocardiogram from Dr Mayfield's office. This showed ejection fraction of 50-55% but your heart valves are working well and it was otherwise normal. Due to recent fevers blood cultures were obtained; these are pending but thus far negative. Also, despite negative COVID-19 swabs up the nose, I sent an antibody test for COVID-19 - this will take 2-3 days to return. Your concussion will take time to heal. Please see the handouts provided for more information on concussion. It is very important to rest, avoid strenuous activities and exercise, avoid loud noises and bright lights, and avoid mental stress. Your family doctor can do concussion testing in the office or send you to someone for monitoring of your recovery from the concussion. Recommendations - 1. for diarrhea - take colestipol 1 tablet daily. If diarrhea persists you can increase it to twice a day. 2. for aches/pains/etc - I have increased your oxycodone to 10mg tablets. Please use these SPARINGLY if possible. DO NOT DRINK ALCOHOL with use of narcotic pain medication. Narcotics can impair your thinking, ability to stay awake, impair driving skills, etc. Narcotics often cause constipation. Please know that the pain meds will temporarily help your headache, but the headache will then come back. You will need to speak with your family doctor about alternative medications for long- term use. 3. for nausea - zofran 4mg every 6 hours as needed. 4. NO DRIVING. NO OPERATING HEAVY MACHINERY. 5. follow-up with [facility] as scheduled. 6. follow-up with Dr Mayfield as scheduled. 7. see [facility] as scheduled. 8. continue your heart monitor at home as previously directed. 9. please seek out PT/OT at [facility] - perhaps start in about 7-10 days Return to [facility] if - * you have fevers over 100.5 degrees * you have intractable headache pain * you have weakness of any limb, difficulty walking, severe numbness, difficulty speaking, etc * any other concerns Pending Studies at Discharge: Yes Studies:: 1. blood cultures 2. antibody test for COVID-19 (blood test) Stand-Alone Forms: My [facility], Smoking Cessation Medications and DC Order Prescriptions: New colestipol [Colestid] 1 gram Tablet 1 g PO .daily-bid Qty: 30 RF: 0 ondansetron 4 mg tablet,disintegrating 4 mg PO Q6H PRN (Reason: nausea and vomiting) Qty: 10 RF: 0 oxycodone-acetaminophen 10-325 mg tablet 1 tab PO Q6H PRN (Reason: pain) Qty: 20 RF: 0 Continued gabapentin 300 mg capsule 300 mg PO BID RF: 0 clonazepam [Klonopin] 0.5 mg Tablet 0.5 mg PO BID RF: 0 omeprazole 20 mg capsule,delayed release(DR/EC) 20 mg PO DAILY RF: 0 hydroxyzine HCl 25 mg tablet 25 mg PO HS RF: 0 metoprolol succinate 25 mg tablet extended release 24 hr 25 mg PO DAILY RF: 0 Discharge Orders: Discharge Order (Routine); Ordered 02/10/20 Ordered By: Vin Orozco/Other Patient Handouts: Treatment for Mild Traumatic Brain Injury Concussion, ED Concussion Admission Data Admit Date/Time: 02/09/20 14:51 Attending Provider: Vin Lerma Admit Provider: Vin Lerma Primary Care Provider: Sukumar Pro Other Providers: Vin Hernandez Other Interventions: Discharge Summary Assessment (RN) Last Done: 02/10/20 14:03 DC Date/Time DO NOT enter until pt leaves facility: 02/10/20 15:47 Coding Level of Care Code 55471 OBS Care - Discharge Diagnoses Head injury S09.90XA Encounter type: initial encounter Concussion S06.0X1A Encounter type: initial encounter Loss of consciousness presence/duration: with LOC of 30 min or less Diarrhea R19.7 Diarrhea type: unspecified type Fever R50.9 Fever type: unspecified Cardiomyopathy I42.9 Cardiomyopathy type: unspecified Guillain Larson syndrome G61.0 SUKHJINDER (generalized anxiety disorder) F41.1 Von Willebrand disease D68.0 GERD (gastroesophageal reflux disease) K21.9 Esophagitis presence: esophagitis presence not specified History of pancreatitis Z87.19
[2020-02-10 14:07] VITALS: BP 99/61
--- NOTE | 2020-02-10 23:12 | Electrocardiogram Report ---
Test Reason : Blood Pressure : / mmHG Vent. Rate : 072 BPM Atrial Rate : 072 BPM P-R Int : 156 ms QRS Dur : 086 ms QT Int : 398 ms P-R-T Axes : 042 -18 -06 degrees QTc Int : 435 ms Normal sinus rhythm Minimal voltage criteria for LVH, may be normal variant Nonspecific T wave abnormality Abnormal ECG When compared with ECG of 09-FEB-2020 12:11, No significant change was found Confirmed by Sotero Vicente ([id number]) on 02/10/2020 11:12:35 PM Referred By: REFERRED SELF Confirmed By:Sotero Vicente
== END 2020-02-10 15:47 | disposition home or self-care (01) ==
LOC: 2N 10:32 → ED 10:32 → 2N 19:15